=== PATIENT | female | born 1990 | race Two or more races ===

== ENCOUNTER 2018-08-18 06:10 | Inpatient (IN) | payer OTHER ==
[~2018-08-18 06:10] MED LIST: CITRIC ACID/SODIUM CITRATE 30 ML UNIT-DOSE CUP PO ONE; ELECTROLYTE-148 SOLN 500 ML IV ONE
[2018-08-18] MEDS ORDERED: ELECTROLYTE-148 SOLN 1,000 ML IV SCH (06:40)
[2018-08-18 07:20] VITALS: BMI 63.1
[2018-08-18] MEDS ORDERED: PHENYLEPHRINE HCL 10 MG/1 ML SINGLE DOSE VIAL ONE ×2 (08:15→09:22)
--- NOTE | 2018-08-18 08:21 | HP ---
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: Alzheimer's, CVA, Dementia, Migraine, Multiple Sclerosis, Peripheral Neuropathy, Parkinson's, Seizure, Syncope, TIA, Vertigo, Other Gastrointestinal: No: Ascites, Cancer, Constipation, Crohn's Disease, Diverticulitis, Diverticulosis, Esophageal Varices, Gastritis, GERD, GI Bleed, Hemorrhoids, Hiatal Hernia, Inflamatory Bowel Disease, Irritable Bowel Disease, Pancreatitis, Peptic Ulcer Disease, Ulcerative Colitis, Other Renal/: No: Renal Failure, Renal Inusuff, BPH, Cancer, Hematuria, Hemodialysis , Neurogenic Bladder, Renal Calculi, UTI, Other ...: 6 ...Para: 0 ...Term: 0 ...: 0 ...Spon : 0 ...Induced : 5 ...Multiple Gestation: 0 ...LMP: 11/17/17 ... Weeks Gestation by Dates: 39.1 ...EDC by Dates: 08/24/18 ...EDC by Sono: 08/20/18 Heme/Onc: No: Anemia, B12 Deficiency, Bleeding Disorder, Cancer, Current Chemotherapy, Current Radiation Therapy, Hemochromatosis, Hypercoaguable State, Myeloproliferative Synd, Sickle Cell Disease, Sickle Cell Trait, Thrombocytopenia, Other Infectious Disease: No: AIDS, C-Diff, Herpes Zoster, HIV, MRSA, STD's, Tuberculosis, VREF, Other Endocrine: No: Frederick's Disease, Modesta's Disease, Diabetes Insipidus, Diabetes Mellitus, Hyperparathyroidism, Hyperthyroidism, Hypothyroidism, Osteopenia, SIADH, Other Dermatology: No: Basal Cell, Cellulitis, Eczema, Melanoma, Psoriasis, Squamous Cell, Other - Past Surgical History Past Surgical History: Yes: None Hx Myomectomy: No Hx Transabdominal Cerclage: No - Advance Directives Advance Directives: No: Living Will, Health Care Proxy, DNR, Organ Donor, Tissue Donor, MOLST - Smoking History Smoking history: Never smoked Have you smoked in the past 12 months: No - Alcohol/Substance Use Hx Alcohol Use: No History of Substance Use: reports: None - Social History History of Recent Travel: No Home Medications - Allergies Allergies/Adverse Reactions: Allergies Allergy/AdvReac Type Severity Reaction Status Date / Time No Known Allergies Allergy Verified 08/18/18 06:42 - Home Medications Home Medications: Ambulatory Orders Vitamins (Sjr) - 1 tab PO DAILY 08/18/18 Family Disease History - Family Disease History Family History: Unremarkable Review of Systems - Review of Systems Constitutional: reports: No Symptoms, Chills, Diaphoresis, Fever, Lethargy, Loss of Appetite, Malaise, Night Sweats, Unintentional Wgt. Loss, Weakness, Other Eyes: reports: No Symptoms, Blind Spots, Blurred Vision, Double Vision, Eye Pain , Floaters, Photophobia, Recent Change in Vision, Other HENT: reports: No Symptoms, Difficult Swallowing, Ear Discharge, Ear Pain, Epistaxis, Gingival Bleeding, Hearing Loss, Mouth Swelling, Nasal Congestion, Ocular Prosthesis, Throat Pain, Toothache, Ringing in Ears, Other Neck: reports: No Symptoms, Decreased ROM, Lumps, Pain on Movement, Stiffness, Swollen Glands, Tenderness, Other Cardiovascular: reports: No Symptoms, Chest Pain, Edema, Palpitations, Shortness of Breath, Other Respiratory: denies: No Symptoms, Cough, Exercise Intolerance, Hemoptysis, Orthopnea, PND, Snoring, SOB, SOB on Exertion, Wheezing, Other Gastrointestinal: denies: No Symptoms, Abdominal Pain, Bloating, Constipation, Diarrhea, Dysphagia, Indigestion, Melena, Nausea, Rectal Bleeding, Vomiting, Vomiting Blood, Other Genitourinary: denies: No Symptoms, Burning, Discharge, Dysuria, Flank Pain, Frequency, Hematuria, Incontinence, Lesions, Menses, Pain, Testicular Mass, Testicular Pain, Testicular Swelling, Urgency, Vaginal Bleeding, Other Breasts: denies: No Symptoms Reported, See HPI, Breast Implants, Discharge from Nipple, Lumps, Pain, Skin Changes, Other Musculoskeletal: denies: No Symptoms, Back Pain, Crepitus, Decreased ROM, Extremity Pain, Joint Pain, Joint Swelling, Muscle Pain, Muscle Cramps, Muscle Weakness, Other Integumentary: denies: No Symptoms, Blister, Bruising, Change in Color, Eczema, Erythema, Incision, Lesions, Lump, Pallor, Pruritis, Rash, Wound, Other Neurological: denies: No Symptoms, Change in LOC, Change in Speech, Confusion, Dizziness, Headache, Incoordination, Numbness, Parasthesia, Pre-Existing Deficit , Seizure, Syncope, Tremors, Unsteady Gait, Weakness, Other Endocrine: denies: No Symptoms, Excessive Sweating, Flushing, Increased Hunger, Increased Thirst, Intolerance to Cold, Intolerance to Heat, Unexplained Weight Gain, Unexplained Weight Loss, Other Hematology/Lymphatic: denies: No Symptoms, Easily Bruised, Excessive Bleeding, Swollen Glands, Other Psychiatric: denies: No Symptoms, Altered Sleep Pattern, Anxiety, Depression, Hallucinations, Panic, Paranoia, Suicidal, Other Physical Exam - Maternity Vital Signs: Vital Signs Temperature 98.2 F 08/18/18 07:10 Pulse Rate 79 08/18/18 07:10 Respiratory Rate 20 08/18/18 07:10 Blood Pressure 127/74 08/18/18 07:10 O2 Sat by Pulse Oximetry (%) Constitutional: Yes: Well Nourished Eyes: Yes: WNL HENT: Yes: WNL Neck: Yes: WNL Breast(s): Yes: Other (deferred) - Abdominal Exam/OB Number of Fetuses: Single Presentation: Breech Contractions: No Regularity: Irritability Intensity: Unaware Monitor Mode: External Category: I Accelerations: None Decelerations: None - Vaginal Exam/OB Vaginal Bleediing: No Speculum Exam: No (deferred) - Physical Exam Musculoskeletal: Yes: WNL Extremities: Yes: WNL Hemorrhage Risk Assessment - Risk Factors Medium Risk Factors: No: Prior , uterine surgery,or multiple laparotomies, Multiple gestation, Greater than 4 previous births, History of previous hemorrhage, Large myomas, EFW greater than 4000g, Obesity ( BMI >40), Hematocrit < 30% & other, None High Risk Factors: No: Placenta previa, low lying, Suspected accreta/ percreta, Active bleeding on admission, Platelets less than 70,000, Known coagulopathy, None Imaging - Results Ultrasound: Other (bedside sono: breech) Problem List - Problems (1) Breech presentation Assessment/Plan: Patient was counseled regarding breech presentation at term, delivery and all questions answered. Informed consent for PLTCS and surgery as indicated obtained. Code(s): O32.1XX0 - MATERNAL CARE FOR BREECH PRESENTATION, UNSP Assessment/Plan Scheduled PLTCS for breech presentation
[2018-08-18] MEDS ORDERED: ACETAMINOPHEN 325 MG TABLET (FP) PO PRN (08:33)
[2018-08-18] MEDS ORDERED: IBUPROFEN 600 MG TABLET (FP) PO PRN (08:33)
[2018-08-18] MEDS ORDERED: ePHEDrine SULFATE 50 MG/1 ML AMPULE ONE ×2 (08:37→09:23)
[2018-08-18] MEDS ORDERED: oxyCODONE HCL 5 MG TABLET PO PRN (09:20)
[2018-08-18] MEDS ORDERED: OXYTOCIN 10 UNITS/ML VIAL ONE (09:22)
[2018-08-18] MEDS ORDERED: ceFAZolin SODIUM 1 GM VIAL ONE (09:22)
--- NOTE | 2018-08-18 10:21 | OP ---
Operative Note - Note: Operative Date: 08/18/18 Pre-Operative Diagnosis: Breech presentation Operation: PTLCS Findings: Breech presentation Implants: none Post-Operative Diagnosis: Same as Pre-op Surgeon: Tucker Arias Finance Broker: Prudencio Strong Anesthesia: Spinal Specimens Removed: none Estimated Blood Loss (mls): 700 Drains, Volume Out (mls): 800 (urine) Fluid Volume Replaced (mls): 1,000 Operative Report Dictated: Yes
[2018-08-18] MEDS ORDERED: OXYTOCIN 20 UNITS in 0.9% NS 20 UNIT/1,000 ML INFUS.BAG IV SCH (10:30)
--- NOTE | 2018-08-18 10:57 | PN ---
Progress Note (short form) - Note Progress Note: Dictation # [id number] Problem List - Problems (1) Breech presentation Code(s): O32.1XX0 - MATERNAL CARE FOR BREECH PRESENTATION, UNSP
[2018-08-18] MEDS: ONDANSETRON 4 MG/2 ML VIAL IVPUSH PRN ×2 (11:44→15:49)
[2018-08-18] MEDS: IBUPROFEN 800 MG/8 ML IJ IVPB PRN (12:43)
--- NOTE | 2018-08-18 13:31 | OP ---
DATE OF OPERATION: 08/18/2018 DICTATING ATTENDING: Lavelle Hernandez MD PREOPERATIVE DIAGNOSIS: This is a 28-year-old 6, para 0-0-5-0 had 39- and-3 weeks of gestation, breech presentation, scheduled primary section. POSTOPERATIVE DIAGNOSIS: This is a 28-year-old 6, para 0-0-5-0 had 39- and-3 weeks of gestation, breech presentation, scheduled primary section. PROCEDURE: Primary low transverse section. SURGEON: Lavelle Hernandez MD AERIAL CROP DUSTER: PREM Ramey ANESTHESIA: Spinal. ESTIMATED BLOOD LOSS FOR THE PROCEDURE: 700. INTRAVENOUS FLUIDS: Crystalloid, 1 L. URINE: Clear urine, 800 mL. COMPLICATIONS: None. FINDING: Normal abdominal anatomy, in double footling presentation , clear amniotic fluid. Uterus consistent with normal anatomy. Bladder dome and rectus muscle fascial interface was noted to be intact and dry at the conclusion of the procedure. DESCRIPTION OF PROCEDURE: The patient was taken to the operating room where anesthesia was found to be adequate. She was then prepped and draped in a normal sterile fashion. Then, a Ly catheter was placed atraumatically. Appropriate time-out took place. A Pfannenstiel skin incision was made with the scalpel and carried to underlying fascia with the Bovie. The fascia was incised in the midline, and the incision was extended laterally with sharp dissection. Underlying rectus muscles were dissected off sharply. The rectus muscles were at the midline, and the peritoneum was entered bluntly. The lower uterine segment was noted to be slightly effaced. Transverse lower uterine segment incision was made with the scalpel, extended laterally with blunt dissection. Amniotomy revealed clear amniotic fluid. The infant was in a double footling presentation. Infants feet were secured by a surgeon, and the was delivered through a surgical incision without difficulty with breech delivery maneuvers. No nuchal cord was present. Umbilical cord was clamped and cut after delay, and the was handed off to the waiting nurse. A sample of the cord was obtained for blood. The placenta was delivered manually and intact. The uterus was exteriorized through the surgical incision , and the intrauterine cavity was cleared of all clots and debris. The lower segment incision was approximated with 1-0 Vicryl running locked sutures. Excellent structural reapproximation and hemostasis was noted with 1-layered suture. A small hematoma on the left inferior aspect of the incision was controlled with a [id number] stitch of the same suture. Uterus was internalized with the pelvic cavity. Gutters were cleared of all clots and debris. Fascial-rectus muscles interphase and bladder dome was examined, and there were noted to be with no signs of active bleeding. The rectus muscles were reapproximated manually, and the fascia was reapproximated with 1-0 Vicryl running non-lock sutures. Excellent structural reapproximation achieved and confirmed by the surgeon, subcutaneous tissues were copiously irrigated, and subcutaneous bleeders controlled intraoperatively with Bovie cautery. Skin incision was reapproximated with 3-0 vicryl subcuticular sutures. Patient was in stable condition. Instrument count was reported as correct x2 by the staff. LAVELLE HERNANDEZ MD [id number] MTDD
[2018-08-19] MEDS: IBUPROFEN 800 MG/8 ML IJ IVPB PRN (02:36)
--- NOTE | 2018-08-19 08:00 | PN ---
Post Progress Note Post Day: 1 Type of Delivery: Primary C/S Vital Signs: Vital Signs Temperature 98.8 F 08/19/18 06:00 Pulse Rate 91 H 08/19/18 01:54 Respiratory Rate 18 08/19/18 06:00 Blood Pressure 113/66 08/19/18 01:54 O2 Sat by Pulse Oximetry (%) 100 08/18/18 10:00 Uterus: Yes: Fundus @ umbilicus Incision: Yes: Dressing dry and intact Abdomen/GI: Yes: Abdomen soft Lochia: Yes: Rubra Lochia, amount: Small Extremities: Yes: Calves non-tender Activity: Ambulating (Po pain control) Assessment/Plan 28yo s/p PLTCS, POD#1 Routine PP pain Po pain control Labs pending Anticipate d/c to home by POD#4 Albert Carlton MD
[2018-08-19 08:07] LABS: BASO % 0.1 % (0-2.0); EOS % 1.3 % (0-4.5); HEMATOCRIT 30.5 % (32.4-45.2); HEMOGLOBIN 10.5 GM/dL (10.7-15.3); LYMPH % 11.5 % (8-40); MCH 32.9 pg (25.7-33.7); MCHC 34.5 g/dl (32.0-36.0); MEAN CELL VOLUME 95.3 fl (80-96); MEAN PLT VOLUME 9.8 fl (7.5-11.1); MONO % 4.3 % (3.8-10.2); NEUT % 82.8 % (42.8-82.8); PLATELET COUNT 151 K/MM3 (134-434); RDW 13.1 % (11.6-15.6); WHITE BLOOD COUNT 14.1 K/mm3 (4.0-10.0)
[2018-08-19] MEDS: SIMETHICONE 80 MG TAB.CHEW (FP) PO PRN ×3 (08:20→23:15)
[2018-08-19] MEDS: IBUPROFEN 600 MG TABLET (FP) PO PRN ×3 (08:21→23:15)
[2018-08-19] MEDS: ACETAMINOPHEN 325 MG TABLET (FP) PO PRN ×3 (08:21→23:15)
[2018-08-19] MEDS ORDERED: BISACODYL 10 MG SUPP.RECT RC PRN (09:20)
--- NOTE | 2018-08-19 17:29 | PATH ---
Surgical Pathology Report Patient Name: CLARA GORDON Med. Rec. 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 Electronically Signed Germania Chavez M.D. Gross Description The specimen is received fresh labeled placenta and is a 498 gram, 17 x16 x 2.1cm. placenta with attached membranes and umbilical cord. The attached membranes are glistening, translucent, and insert marginally. The umbilical cord measures 19 cm. in length and averages 1.2 cm. in diameter. The cord inserts eccentrically, 5 centimeter to the nearest margin. No true knots or strictures are identified. Cut surface of the umbilical cord reveals 3 vessels. Sectioning reveals red-brown, spongy parenchyma. No lesions are identified. [employer] Former sections are submitted in three cassettes as follows: 1- membrane rolls and umbilical cord; 2-3- full thickness sections of placenta KWS/08/18/2018 sulki/08/18/2018
--- NOTE | 2018-08-20 08:15 | PN ---
Progress Note (short form) - Note Progress Note: Post op day#1.S/P C section under spinal anesthesia with duramorph uneventful.Patient stable and c/o little pain for she is on medication.No any anesthesia related problem.Patient DC from the anesthesia care.
--- NOTE | 2018-08-20 08:39 | PN ---
Post Progress Note - Subjective Subjective: 28 yo Para 1 status post primary , seen and evaluated. She's doing well, no complaints. Post Day: 2 Type of Delivery: Primary C/S Vital Signs: Vital Signs Temperature 98.1 F 08/20/18 08:30 Pulse Rate 78 08/20/18 08:30 Respiratory Rate 20 08/20/18 08:30 Blood Pressure 119/68 08/20/18 08:30 O2 Sat by Pulse Oximetry (%) 100 08/18/18 10:00 Breast Exam: Yes: Soft Uterus: Yes: Fundus Firm Incision: Yes: Other (Steri strips in place) Lochia: Yes: Rubra Lochia, amount: Small Extremities: Yes: Calves non-tender Activity: Ambulating - Labs Labs: CBC WBC 14.1 K/mm3 (4.0-10.0) H 08/19/18 07:00 RBC 3.20 M/mm3 (3.60-5.2) L 08/19/18 07:00 Hgb 10.5 GM/dL (10.7-15.3) L 08/19/18 07:00 Hct 30.5 % (32.4-45.2) L D 08/19/18 07:00 MCV 95.3 fl (80-96) 08/19/18 07:00 MCH 32.9 pg (25.7-33.7) 08/19/18 07:00 MCHC 34.5 g/dl (32.0-36.0) 08/19/18 07:00 RDW 13.1 % (11.6-15.6) 08/19/18 07:00 Plt Count 151 K/MM3 (134-434) 08/19/18 07:00 MPV 9.8 fl (7.5-11.1) 08/19/18 07:00 Absolute Neuts (auto) 11.7 K/mm3 (1.5-8.0) H 08/19/18 07:00 Neutrophils % 82.8 % (42.8-82.8) 08/19/18 07:00 Lymphocytes % 11.5 % (8-40) D 08/19/18 07:00 Monocytes % 4.3 % (3.8-10.2) 08/19/18 07:00 Eosinophils % 1.3 % (0-4.5) 08/19/18 07:00 Basophils % 0.1 % (0-2.0) 08/19/18 07:00 Nucleated RBC % 0 % (0-0) 08/19/18 07:00 Problem List - Problems (1) Status post primary low transverse section Code(s): Z98.891 - HISTORY OF UTERINE SCAR FROM PREVIOUS SURGERY Assessment/Plan Status post primary Ambulation Analgesia as needed Continue routine post op care
[2018-08-20] MEDS: IBUPROFEN 600 MG TABLET (FP) PO PRN ×3 (09:43→22:40)
[2018-08-20] MEDS: ACETAMINOPHEN 325 MG TABLET (FP) PO PRN ×3 (09:43→22:39)
[2018-08-20] MEDS: SIMETHICONE 80 MG TAB.CHEW (FP) PO PRN ×3 (09:44→22:39)
--- NOTE | 2018-08-21 06:04 | DS ---
Physical Examination Vital Signs: Vital Signs Temperature 98.7 F 08/20/18 20:47 Pulse Rate 80 08/20/18 20:47 Respiratory Rate 20 08/20/18 20:47 Blood Pressure 126/76 08/20/18 20:47 O2 Sat by Pulse Oximetry (%) 100 08/18/18 10:00 Constitutional: Yes: Well Nourished, No Distress, Calm Eyes: Yes: WNL, Conjunctiva Clear, EOM Intact HENT: Yes: WNL, Atraumatic, Normocephalic Neck: Yes: WNL, Supple, Trachea Midline Cardiovascular: Yes: WNL, Regular Rate and Rhythm Respiratory: Yes: WNL, Regular, CTA Bilaterally Gastrointestinal: Yes: WNL, Normal Bowel Sounds Musculoskeletal: Yes: WNL Extremities: Yes: WNL Edema: No Integumentary: Yes: WNL Neurological: Yes: WNL, Alert, Oriented ...Motor Strength: WNL Psychiatric: Yes: WNL Labs: CBC, BMP 08/19/18 07:00 Discharge Summary Reason For Visit: SCHEDULED C/SECTION Current Active Problems Breech presentation (Acute) Status post primary low transverse section (Acute) Procedures: Principal: PLTCS Other Procedures: PLTCS Hospital Course: Patient presented for a scheduled PLTCS She underwent an uncomplicated procedure She met all milestones She was discharged home on POD#3 Albert Carlton MD Condition: Stable - Instructions Diet, Activity, Other Instructions: Regular Diet Referrals: Tucker Arias MD [Staff Physician] - Disposition: HOME - Home Medications Comprehensive Discharge Medication List: Ambulatory Orders Vitamins (Sjr) - 1 tab PO DAILY 08/18/18
[2018-08-21 08:06] LABS: BASO % 0.4 % (0-2.0); EOS % 3.4 % (0-4.5); HEMATOCRIT 30.2 % (32.4-45.2); HEMOGLOBIN 10.5 GM/dL (10.7-15.3); LYMPH % 18.4 % (8-40); MCH 33.4 pg (25.7-33.7); MCHC 34.6 g/dl (32.0-36.0); MEAN CELL VOLUME 96.5 fl (80-96); MEAN PLT VOLUME 9.2 fl (7.5-11.1); MONO % 5.9 % (3.8-10.2); NEUT % 71.9 % (42.8-82.8); PLATELET COUNT 178 K/MM3 (134-434); RBC 3.14 M/mm3 (3.60-5.2); RDW 13.1 % (11.6-15.6); WHITE BLOOD COUNT 9.6 K/mm3 (4.0-10.0)
[2018-08-21] MEDS: ACETAMINOPHEN 325 MG TABLET (FP) PO PRN (09:49)
[2018-08-21] MEDS: IBUPROFEN 600 MG TABLET (FP) PO PRN (09:50)
[2018-08-21 10:24] VITALS: BP 114/71; PULSE 67; TEMP 98.1
== END 2018-08-21 13:00 | disposition home or self-care (01) | DRG 540 ==
LOC: JLDR 06:10 → J3W 10:59
PROVIDERS: ADMIT Student in an Organized Health Care Education/Training Program; ATTEND Student in an Organized Health Care Education/Training Program
PROC: 10D00Z1 Extraction of Products of Conception, Low, Open Approach (ICD-10-PCS; principal; 2018-08-18)
DX: O32.8XX0 Maternal care for other malpresentation of fetus, not applicable or unspecified (principal); Z37.0 Single live birth; Z3A.39 39 weeks gestation of pregnancy
CPT/HCPCS: 36415; 85025; 88307-TC

== ENCOUNTER 2019-11-03 17:14 | Emergency (ER) | payer OTHER ==
--- NOTE | 2019-11-03 17:33 | PDOC ---
History of Present Illness - General Chief Complaint: Shortness of Breath Stated Complaint: SOB/VOMITING Time Seen by Provider: 11/03/19 17:18 History Source: Patient Exam Limitations: No Limitations - History of Present Illness Initial Comments: 11/03/19 17:28 29 year old female with no pmhx presenting with known COVID + exposure complaining of fever at home (does not recall temp) fatigue and mild SOB. Pt did not take any medicine at home. Concerned that she is COVID positive bc she has a son at home. Pt states her job will not let her back without testing. Pt is a nonsmoker, not on control and no recent travel. Pt otherwise denies:chills, syncope, lightheadedness, dizziness, headaches, neck pain, chest pain, palpitations, back pain, abdominal pain, nausea, vomiting, diarrhea, constipation. Past History - Medical History Allergies/Adverse Reactions: Allergies Allergy/AdvReac Type Severity Reaction Status Date / Time No Known Allergies Allergy Verified 11/03/19 17:25 Home Medications: Ambulatory Orders NK [No Known Home Medication] 11/03/19 Asthma: No Cancer: No Cardiac Disorders: No Diabetes: No HTN: No Seizures: No Thyroid Disease: No - Psycho-Social/Smoking History Smoking History: Never smoked Have you smoked in the past 12 months: No *Physical Exam - Physical Exam 11/03/19 17:30 Gen: AAOx 3, no acute distress, comfortable, no signs of respiratory distress HENT: atraumatic, normocephalic with no laceration or contusion. Nasal mucosa without erythema. Oropharynx without erythema or exudates. Mucous membranes moist. EYES: PERRL, EOM intact, conjunctiva pink NECK: supple; trachea midline; no JVD, no lymphadenopathy, or thyromegaly CV: RRR no murmurs, gallops, or rubs. CHEST: CTA b/l no wheezing, rales or rhonchi ABD: +BS/ND. no TTP; soft, no rebound, no guarding EXTREMITY: no cyanosis or erythema. 2+ dorsalis pedis, posterior tibial, and radial pulse. No pedal edema; no calf swelling or tenderness SKIN: no rash, warm and dry, no diaphoresis HEME: no purpura or ecchymosis NEURO: normal speech, CN II-XII intact, sensation intact, normal gait, no cerebellar deficits MS: 5/5 strength in all extremities, FROM intact in all extremities. ED Treatment Course - RADIOLOGY Radiology Studies Ordered: Category Date Time Status CHEST PA & LAT [RAD] Stat Radiology 11/03/19 17:25 Ordered Medical Decision Making - Medical Decision Making 11/03/19 17:31 29 year old female with COVID positive contact VSS afebrile, nontachycardic, O2 sat 100% on RA Benign PE PERC negative Will obtain CXR and COVID testing Likely discharge if chest XR normal as vital signs are stable Chest XR negative Pt instructed to self isolate and not return to work until results are back and only if negative. pt informed she will be called with results of testing Pt given strict return precautions as well as signs and symptoms for immediate return to the ED Pt appears well and is safe and stable for discharge Supportive care instructions explained and given to pt. Reasons to return emergently to ER explained and given. Importance of follow up with PMD and other specialists as indicated stressed to pt. Pt verbalized understanding of instructions. Pt to follow up with PMD in 2 days. Discharge - Discharge Information Problems reviewed: Yes Clinical Impression/Diagnosis: Counseled about COVID-19 virus infection Condition: Stable Disposition: HOME - Follow up/Referral Referrals: ON STAFF,NOT [Primary Care Provider] - - Patient Discharge Instructions Patient Printed Discharge Instructions: [facility]-Coronavirus Instructions, R- [facility] COVID-19 Isolation Protocol Additional Instructions: If your symptoms worsen return to the ED Please follow up with your PCP without fail - Post Discharge Activity Work/Back to School Note: Back to Work
[2019-11-03 17:36] VITALS: BP 131/77; PULSE 90; TEMP 98.2; BMI 28.3
== END 2019-11-03 18:18 | disposition home or self-care (01) ==
LOC: JER 17:14
DX: Z11.59 Encounter for screening for other viral diseases (principal)
CPT/HCPCS: 71046-TC-FY; Q3014-GT; U0003